=== PATIENT | female | born 1955 | race Caucasian/White ===

== ENCOUNTER 2022-04-13 00:51 | Emergency (ER) | payer OTHER, MEDICAID ==
[~2022-04-13] VITALS: Ht 157.5 cm; Wt 49.9 kg
[~2022-04-13 00:51] MED LIST: ALBU0.63 IH; FLUO40CA8 PO; GABA300C PO; HYDR-4354 PO
[2022-04-13] MEDS ORDERED: ONDANSETRON 4 MG/2 ML VIAL IV ONE (01:45)
[2022-04-13] MEDS ORDERED: HYDROMORPHONE 1 MG/1 ML DISP.SYRIN IV ONE ×2 (01:45→03:15)
[2022-04-13] MEDS ORDERED: KETOROLAC TROMETHAMINE 30 MG INJ IVP ONE (01:45)
[2022-04-13] MEDS ORDERED: KETOROLAC TROMETHAMINE 30 MG INJ ONE (01:51)
[2022-04-13] MEDS ORDERED: ONDANSETRON 4 MG/2 ML VIAL ONE (01:51)
[2022-04-13 01:55] LABS: HEMATOCRIT 28.5 % (31.2-41.9); MEAN CORPUSCULAR HEMOGLOBIN 21.7 uug (24.7-32.8); MEAN CORPUSCULAR VOLUME 71.5 fL (75.5-95.3); PLATELET COUNT (AUTO) 416 K/uL (179-408)
--- NOTE | 2022-04-13 01:57 | NUR ---
Patient transported to Radiology for XRAY.
[2022-04-13] MEDS ORDERED: HYDROMORPHONE 1 MG/1 ML DISP.SYRIN ONE ×3 (02:00→03:55)
[2022-04-13 02:01] LABS: CREATININE 0.6 mg/dL (0.6-1.3); POTASSIUM 3.8 mmol/L (3.5-5.1)
[2022-04-13 03:19] LABS: IRON, SERUM 13 ug/dL (50-175)
[2022-04-13] MEDS ORDERED: HYDR4TAB4 PO (03:47)
[2022-04-13] MEDS ORDERED: FERR325T23 PO (03:49)
[2022-04-13] MEDS ORDERED: HYDROMORPHONE 1 MG/1 ML DISP.SYRIN IM ONE (04:00)
[2022-04-13 04:02] VITALS: BP 109/73
[2022-04-13 10:23] LABS: EOSINOPHILS % (MANUAL) 3 % (0-8); LYMPHOCYTES % (MANUAL) 25 % (20-40); MONOCYTES % (MANUAL) 4 % (2-10); NEUTROPHILS % (MANUAL) 68 % (42-75)
== END 2022-04-13 04:02 | disposition home or self-care (01) ==
LOC: ER 01:03
DX: M54.9 Dorsalgia, unspecified (principal); D50.9 Iron deficiency anemia, unspecified; L98.499 Non-pressure chronic ulcer of skin of other sites with unspecified severity; J44.9 Chronic obstructive pulmonary disease, unspecified; R91.8 Other nonspecific abnormal finding of lung field
CPT/HCPCS: 36415; 71046; 80048; 83550; 85007; 85025; 85651; 87040 ×2; 87070; 96374; 96375; 99284; J1170 ×2; J1885; J2405; 70030-TC; 87077; A4663